=== PATIENT | male | born 1985 | race Caucasian/White ===

== ENCOUNTER 2016-11-14 23:55 | Emergency (ER) | payer MEDICAID ==
[~2016-11-14] VITALS: Ht 177.8 cm; Wt 83.9 kg
[2016-11-15 00:03] VITALS: BP 132/80
[2016-11-15] MEDS ORDERED: KETOROLAC TROMETHAMINE INJ 60 MG/2 ML VIAL IM ONE ×2 (03:00→03:32)
[2016-11-15 03:50] LABS: ADD UA MICROSCOPIC NO; KETONES,URINE NEGATIVE (NEGATIVE); LEUKOCYTE ESTERASE ,URINE NEGATIVE (NEGATIVE)
== END 2016-11-15 04:11 | disposition home or self-care (01) ==
LOC: ER 23:57
DX: F41.9 Anxiety disorder, unspecified (principal); M79.1 Myalgia; F17.200 Nicotine dependence, unspecified, uncomplicated
CPT/HCPCS: 81001; 93005; 99285; A4606; J1885; Z7610; 81000-TC

== ENCOUNTER 2017-03-26 18:53 | Emergency (ER) | payer SELFPAY ==
[~2017-03-26] VITALS: Ht 177.8 cm; Wt 83.9 kg
[2017-03-26 19:00] VITALS: BP 133/75
[2017-03-26] MEDS ORDERED: CEFTRIAXONE 500 MG VIAL IM ONE (20:00)
[2017-03-26] MEDS ORDERED: AZITHROMYCIN 250 MG TABLET PO ONE (20:00)
[2017-03-26 20:01] LABS: APPEARANCE,URINE Clear (CLEAR); BILIRUBIN,URINE Negative (NEGATIVE); BLOOD, URINE Negative Ery/uL (NEGATIVE); COLOR,URINE Yellow (YELLOW); KETONES,URINE Negative (NEGATIVE); LEUKOCYTE ESTERASE ,URINE Negative (NEGATIVE); NITRITE, URINE Negative (NEGATIVE); PH,URINE 7.5 (5.0-8.0); PROTEIN,URINE Negative (NEGATIVE); UGLUCOSE Negative (NEGATIVE); UROBILINOGEN,URINE 0.2 EU/dL (0.2)
[2017-03-26] MEDS ORDERED: AZITHROMYCIN 250 MG TABLET ONE (20:04)
[2017-03-26] MEDS ORDERED: CEFTRIAXONE 500 MG VIAL ONE (20:04)
[2017-03-26] MEDS ORDERED: LIDOCAINE /MPF 1% VIAL 5 ML VIAL ONE (20:04)
== END 2017-03-26 20:39 | disposition home or self-care (01) ==
LOC: ER 18:54
DX: R30.0 Dysuria (principal); F41.9 Anxiety disorder, unspecified; F17.200 Nicotine dependence, unspecified, uncomplicated; Z20.2 Contact with and (suspected) exposure to infections with a predominantly sexual mode of transmission
CPT/HCPCS: 81000-TC; 87491; 87591; A4606; J0696; J3490; Z7610

== ENCOUNTER 2017-05-29 00:17 | Emergency (ER) | payer SELFPAY ==
[~2017-05-29] VITALS: Ht 175.3 cm; Wt 86.2 kg
--- NOTE | 2017-05-29 00:56 | NUR ---
pt ambulatory w/ steady gait, c/o rlq abd pain w/ testicular pain w/ urinary frequency, denies hematuria x today. AOx4, afebrile w/ resp even & unlabored, denies any sob, no N/V/D w/ nad noted. Urine obtained & sent to lab. LENI Gonsales at bedside for further eval.
--- NOTE | 2017-05-29 01:18 | NUR ---
Sitting up in bed w/ nad noted. Awaiting test results.
[2017-05-29 01:33] LABS: APPEARANCE,URINE CLEAR (CLEAR); COLOR,URINE YELLOW (YELLOW); PROTEIN,URINE NEGATIVE (NEGATIVE)
[2017-05-29 01:34] LABS: UGLUCOSE NEGATIVE (NEGATIVE)
[2017-05-29 01:35] LABS: BILIRUBIN,URINE NEGATIVE (NEGATIVE); BLOOD, URINE NEGATIVE Ery/uL (NEGATIVE); KETONES,URINE NEGATIVE (NEGATIVE); LEUKOCYTE ESTERASE ,URINE NEGATIVE (NEGATIVE); NITRITE, URINE NEGATIVE (NEGATIVE); UROBILINOGEN,URINE 0.2 EU/dL (0.2)
--- NOTE | 2017-05-29 02:20 | NUR ---
pt medicated as ordered.
[2017-05-29] MEDS ORDERED: CEFTRIAXONE 500 MG VIAL ONE (02:23)
[2017-05-29] MEDS ORDERED: AZITHROMYCIN 250 MG TABLET ONE (02:24)
[2017-05-29] MEDS ORDERED: LIDOCAINE /MPF 1% VIAL 5 ML VIAL ONE (02:24)
[2017-05-29] MEDS ORDERED: CEFTRIAXONE 1 G VIAL IM ONE (02:30)
[2017-05-29] MEDS ORDERED: AZITHROMYCIN 250 MG TABLET PO ONE (02:30)
--- NOTE | 2017-05-29 02:32 | NUR ---
Patient discharged to home in stable condition. Written and verbal after care instructions given. Patient verbalizes understanding of instruction.
[2017-05-29 02:33] VITALS: BP 140/79
[2017-05-31 04:10] LABS: *NEISSERIA GONORRHOEAE NAA Negative (Negative); CHLAMYDIA TRACHOMATIS NAA Negative (Negative)
== END 2017-05-29 02:36 | disposition home or self-care (01) ==
LOC: ER 00:23
DX: R10.31 Right lower quadrant pain (principal); A64 Unspecified sexually transmitted disease; L29.9 Pruritus, unspecified; F41.9 Anxiety disorder, unspecified; F17.200 Nicotine dependence, unspecified, uncomplicated
CPT/HCPCS: 81001; 87491; 87591; 96372; 99284; A4606; J0696; J3490; Z7610; 81000-TC

== ENCOUNTER 2018-05-16 02:07 | Emergency (ER) | payer SELFPAY ==
[~2018-05-16] VITALS: Ht 177.8 cm; Wt 93.0 kg
[2018-05-16 02:08] VITALS: BP 123/81
== END 2018-05-16 02:50 | disposition home or self-care (01) ==
LOC: ER 02:08
DX: F41.9 Anxiety disorder, unspecified (principal); F17.200 Nicotine dependence, unspecified, uncomplicated; Z86.19 Personal history of other infectious and parasitic diseases
CPT/HCPCS: 93005; 99283; A4606; Z7610

== ENCOUNTER 2018-07-11 14:58 | Emergency (ER) | payer SELFPAY ==
[~2018-07-11] VITALS: Ht 177.8 cm; Wt 90.7 kg
--- NOTE | 2018-07-11 15:45 | NUR ---
PT STATES HE IS BINGE DRINKER. HIS LAST DRINK WAS 2 WEEKS AGO. HE IS NAUSEATED BUT NO VOMITING. HE FEELS "LIKE IM DYING". PT IS WELL APEARING. SKIN PINK WARM AND DRY RESPS EVEN AND NON LABORED NO ACUTE DISTRESS. NO TREMORS. VS WNL. SITTING UP TALKING IN COMPLETE SENTENSES. EYES ARE BLOOD SHOT. STATES HE IS HAVING SEVERE ANXIETY. HE IS UNABLE TO WORK OR SOMETIMES EVEN LEAVE HIS HOUSE.
[2018-07-11] MEDS ORDERED: ONDANSETRON 4 MG TAB.RAPDIS ONE (15:58)
[2018-07-11] MEDS ORDERED: ONDANSETRON 4 MG TAB.RAPDIS SL ONE (16:00)
--- NOTE | 2018-07-11 16:11 | NUR ---
PO CHALLENGE WITH WATER
--- NOTE | 2018-07-11 16:25 | NUR ---
PT TOLERATED PO CHALLENGE. NAUSEA HAS NOT CHANGED BUT IS NOT WORSE. NO VOMITING. DISCHRGE INSTRUCTIONS GIVEN VERBAL AND WRITTEN. ADVISED PT AGAINST DRINKING OR DRIVING WHILE TAKING [employer]. ADVISED ON FOLLOW UP AND TO RETURN TO ED IF FEELING WORSE NOT BETTER. SKIN PINK WARM AND DRY RESPS EVEN AND NON LABORED NO ACUTE DISTRESS. AMBULATED FROM ED STEADY GAIT.
[2018-07-11 16:55] VITALS: BP 146/88
== END 2018-07-11 16:25 | disposition home or self-care (01) ==
LOC: ER 14:59
DX: F41.9 Anxiety disorder, unspecified (principal); K29.70 Gastritis, unspecified, without bleeding; A64 Unspecified sexually transmitted disease; F10.10 Alcohol abuse, uncomplicated; F17.200 Nicotine dependence, unspecified, uncomplicated; Y90.9 Presence of alcohol in blood, level not specified
CPT/HCPCS: 99284; 99406; A4606; Q0162; Z7610